=== PATIENT | male | born 1960 | race Caucasian/White ===

== ENCOUNTER 2021-11-22 12:49 | Emergency (ER) | payer SELFPAY ==
[~2021-11-22] VITALS: Ht 172.7 cm; Wt 91.0 kg
[2021-11-22 13:04] VITALS: BP 141/83
[2021-11-22 13:46] VITALS: BP 146/85
[2021-11-22 14:13] VITALS: BP 146/85
== END 2021-11-22 14:17 | disposition home or self-care (01) | DRG 552 ==
LOC: ED 12:49
DX: S16.1XXA Strain of muscle, fascia and tendon at neck level, initial encounter (principal); S09.90XA Unspecified injury of head, initial encounter; W11.XXXA Fall on and from ladder, initial encounter; Y93.H9 Activity, other involving exterior property and land maintenance, building and construction; Y92.007 Garden or yard of unspecified non-institutional (private) residence as the place of occurrence of the external cause